=== PATIENT | female | born 1955 | race African-American/Black ===

== ENCOUNTER 2017-10-21 11:07 | Emergency (ER) | payer MEDICAID, MEDICARE ==
[~2017-10-21] VITALS: Ht 177.8 cm; Wt 92.7 kg
[~2017-10-21 11:07] MED LIST: LEVO125T63 PO; OXYC5TAB3 PO; TRAMODOL PO
[2017-10-21 11:11] VITALS: BP 146/96
== END 2017-10-21 12:37 | disposition home or self-care (01) ==
LOC: ED 12:14
DX: H66.003 Acute suppurative otitis media without spontaneous rupture of ear drum, bilateral (principal); J00 Acute nasopharyngitis [common cold]; I10 Essential (primary) hypertension; E05.90 Thyrotoxicosis, unspecified without thyrotoxic crisis or storm
CPT/HCPCS: 71046; 99284

== ENCOUNTER → 2020-03-29 | Outpatient (CLI) | payer MEDICARE, MEDICAID ==
[~2020-03-29] MED LIST changes: +LEVO112T2 PO; +OMEP-110 PO; +OXYC10TA6 PO; +QUET100T PO
[2020-03-29 09:39] LABS: BASOPHILS % (AUTO) 1 % (0-1); EOSINOPHILS % (AUTO) 1 % (1-7); LYMPHOCYTES % (AUTO) 40 % (22-44); MEAN CORPUSCULAR HEMOGLOBIN 29.6 pg (27.0-34.8); MEAN CORPUSCULAR HGB CONC 32.9 g/dL (32.4-35.8); MEAN PLATELET VOLUME 9.1 fL (7.4-10.4); MONOCYTES % (AUTO) 7 % (2-9); NEUTROPHILS % (AUTO) 52 % (42-75); PLATELET COUNT 200 x10^3/uL (130-400); RED BLOOD COUNT 4.94 x10^6/uL (3.82-5.3); RED CELL DISTRIBUTION WIDTH 14.3 % (9.6-15.2)
[2020-03-29 09:43] LABS: INTERNATIONAL NORMALIZED RATIO 0.96 (0.93-1.1); PROTHROMBIN TIME 10.2 Seconds (9.6-11.5)
[2020-03-29 10:09] LABS: ANION GAP 0 mmol/L (5-15); CALCIUM 9.1 mg/dL (8.5-10.1); CHLORIDE 113 mmol/L (98-107); CREATININE 1.66 mg/dL (0.55-1.02)
[2020-03-29 10:57] LABS: <PLATELET ESTIMATE> ADEQUATE; <RBC MORPHOLOGY> NORMAL; GIANT PLATELETS 1+; MD MORPH REVIEW ONLY
== END | disposition home or self-care (01) ==
LOC: STAR 07:54
PROVIDERS: ATTEND Orthopaedic Surgery
DX: Z01.812 Encounter for preprocedural laboratory examination (principal); Z20.828 Contact with and (suspected) exposure to other viral communicable diseases; Z96.652 Presence of left artificial knee joint
CPT/HCPCS: 80048; 83036; 85025; 85610; 85730; 87081; 87635; 87806; 93005; G0475